=== PATIENT | female | born 1990 | race Caucasian/White ===

== ENCOUNTER 2023-05-10 20:31 | Emergency (ER) | payer BC, OTHER ==
[~2023-05-10] VITALS: Ht 175.3 cm; Wt 103.2 kg
[~2023-05-10 20:31] MED LIST: BUSPIRONE HCL5 MG PO; METHOCARBAMOL500 MG PO; PHENTERMINE H37.5 MG PO; TOPAMAX15 MG PO
[2023-05-10 23:38] LABS: BASOPHILS 0.9 % (0-2); EOSINOPHILS 4.2 % (0-6); HEMATOCRIT 37.2 % (35.0-50.0); HEMOGLOBIN 11.7 g/dL (12.0-18.0); LYMPHOCYTES 28.8 % (24-44); MCHC 31.5 g/dl (30-36); MCV 76.2 fl (81-99); MONOCYTES 6.4 % (0-12); NEUTROPHILS 59.7 % (39-80); PLATELET COUNT 261 K/uL (140-440); RBC 4.88 M/ul (4.3-5.7); RDW 15.8 (10.5-15.0)
[2023-05-10 23:57] LABS: ALBUMIN 3.8 g/dL (3.4-5.0); ALBUMIN/GLOBULIN RATIO 1.03 (1.1-2.4); ANION GAP 14.2 (7-21); BILIRUBIN, TOTAL 0.5 ng/dL (0.2-1.0); BUN/CREATININE RATIO 12.5 (6.0-28.6); CALCIUM 8.6 mg/dL (8.5-10.1); CREATININE, SERUM 0.8 mg/dL (0.55-1.02); POTASSIUM 3.2 mmol/L (3.5-5.1); PROTEIN, TOTAL 7.5 g/dL (6.4-8.2)
[2023-05-11 04:30] LABS: BILIRUBIN, URINE NEGATIVE (negative); BLOOD/HGB, URINE NEGATIVE (Negative); KETONE, URINE SMALL (Negative); LEUK ESTERASE, URINE NEGATIVE (negative); NITRITE, URINE NEGATIVE (negative); PH, URINE 5.5 (5-7)
[2023-05-11 04:59] VITALS: BP 114/67
== END 2023-05-11 03:15 | disposition home or self-care (01) ==
LOC: ED 20:31
PROVIDERS: Family Medicine
DX: A08.4 Viral intestinal infection, unspecified (principal); Z79.899 Other long term (current) drug therapy
CPT/HCPCS: 36415; 74177; 80053; 81003; 83690; 84703; 85025; 96375; 99284-25; A9270; J2270; J2405; J7030; Q9967